=== PATIENT | male | born 1970 | race Caucasian/White ===

== ENCOUNTER → 2017-03-28 | Outpatient (CLI) | payer OTHER | END | disposition home or self-care (01) | LOC: ROC 03-27 10:19 | PROVIDERS: ATTEND Radiology Radiation Oncology | DX: C71.9 Malignant neoplasm of brain, unspecified (principal); Z86.73 Personal history of transient ischemic attack (TIA), and cerebral infarction without residual deficits; Z87.442 Personal history of urinary calculi; Z92.3 Personal history of irradiation | CPT/HCPCS: 99204; G0463 ==

== ENCOUNTER → 2017-04-02 | Outpatient (CLI) | payer OTHER | LOC: RAD 12:36 | PROVIDERS: ATTEND Family Medicine | DX: C71.9 Malignant neoplasm of brain, unspecified (principal); M50.23 Other cervical disc displacement, cervicothoracic region; M51.24 Other intervertebral disc displacement, thoracic region; M51.26 Other intervertebral disc displacement, lumbar region; M47.894 Other spondylosis, thoracic region; M46.02 Spinal enthesopathy, cervical region; M47.892 Other spondylosis, cervical region; M47.896 Other spondylosis, lumbar region; Z98.890 Other specified postprocedural states | CPT/HCPCS: 72156; 72157; 72158 ==

== ENCOUNTER → 2017-04-11 | Outpatient (CLI) | payer OTHER ==
[~2017-04-11] MED LIST: GADOBUTROL 7.5 MMOL/7.5 ML PFS ONE
== END | disposition home or self-care (01) ==
LOC: RAD 15:30
PROVIDERS: ATTEND Radiology Radiation Oncology
DX: C71.0 Malignant neoplasm of cerebrum, except lobes and ventricles (principal)
CPT/HCPCS: 70553; A9585

== ENCOUNTER → 2017-05-07 | Outpatient (CLI) | payer OTHER | LOC: CFH 15:20 | PROVIDERS: ATTEND Radiology Radiation Oncology | DX: C71.0 Malignant neoplasm of cerebrum, except lobes and ventricles (principal); G93.89 Other specified disorders of brain | CPT/HCPCS: 70553; A9585 ==

== ENCOUNTER → 2017-05-20 | Outpatient (CLI) | payer OTHER | END | disposition home or self-care (01) | LOC: ROC 08:29 | PROVIDERS: ATTEND Radiology Radiation Oncology | DX: Z02.9 Encounter for administrative examinations, unspecified (principal) ==

== ENCOUNTER → 2017-06-19 | Outpatient (CLI) | payer OTHER ==
[~2017-06-19] MED LIST changes: +CHEMO; -GADOBUTROL 7.5 MMOL/7.5 ML PFS ONE
== END ==
LOC: RAD 10:36
PROVIDERS: ATTEND Family Medicine
DX: C71.9 Malignant neoplasm of brain, unspecified (principal)
CPT/HCPCS: 71046

== ENCOUNTER → 2017-08-08 | Outpatient (CLI) | payer OTHER | LOC: ROC 09:04 | PROVIDERS: ATTEND Radiology Radiation Oncology | DX: Z08 Encounter for follow-up examination after completed treatment for malignant neoplasm (principal); C71.0 Malignant neoplasm of cerebrum, except lobes and ventricles | CPT/HCPCS: 99212; G0463 ==

== ENCOUNTER → 2017-10-23 | Outpatient (CLI) | payer OTHER ==
[~2017-10-23] MED LIST changes: +GADOBUTROL 10 MMOL/10 ML PFS ONE
== END | disposition home or self-care (01) ==
LOC: RAD 07:45
PROVIDERS: ATTEND Internal Medicine Hematology & Oncology
DX: C71.9 Malignant neoplasm of brain, unspecified (principal)
CPT/HCPCS: 70553; A9585

== ENCOUNTER → 2018-01-05 | Outpatient (CLI) | payer OTHER | END | disposition home or self-care (01) | LOC: RAD 09:02 | PROVIDERS: ATTEND Internal Medicine Hematology & Oncology | DX: C71.9 Malignant neoplasm of brain, unspecified (principal) | CPT/HCPCS: 70553; A9585 ==

== ENCOUNTER → 2018-04-15 | Outpatient (CLI) | payer OTHER | END | disposition home or self-care (01) | LOC: EDSTATUS 07:15 → RAD 07:20 | PROVIDERS: ATTEND Internal Medicine Hematology & Oncology | DX: R90.82 White matter disease, unspecified (principal); C71.9 Malignant neoplasm of brain, unspecified | CPT/HCPCS: 70553; A9585 ==

== ENCOUNTER → 2018-05-08 | Outpatient (CLI) | payer OTHER ==
[~2018-05-08] MED LIST changes: -GADOBUTROL 10 MMOL/10 ML PFS ONE
== END | disposition home or self-care (01) ==
LOC: CFH 07:39
PROVIDERS: ATTEND Internal Medicine Hematology & Oncology
DX: C71.9 Malignant neoplasm of brain, unspecified (principal)
CPT/HCPCS: 76700

== ENCOUNTER → 2020-04-06 | Outpatient (CLI) | payer MEDICARE, OTHER ==
[~2020-04-06] MED LIST changes: +GADOTERATE 7.5 MMOL/15 ML VIAL ONE
== END | disposition home or self-care (01) ==
LOC: RAD 06:46
PROVIDERS: ATTEND Radiology Radiation Oncology
DX: C71.9 Malignant neoplasm of brain, unspecified (principal); D49.6 Neoplasm of unspecified behavior of brain; M51.36 Other intervertebral disc degeneration, lumbar region
CPT/HCPCS: 70553; 72158; A9575